=== PATIENT | male | born 2000 | race Caucasian/White ===

== ENCOUNTER 2021-01-03 02:53 | Emergency (ER) | payer OTHER, SELFPAY ==
[2021-01-03 02:54] VITALS: BP 130/77; PULSE 109; RESP 16; TEMP 36.4; O2SAT 100; BMI 22.7
--- NOTE | 2021-01-03 02:58 | CT_ITS ---
STUDY: CT CERVICAL SPINE WITHOUT CONTRAST REASON FOR EXAM: Male, 20 years old. Fall RADIATION DOSAGE (If Supplied By Facility): CTDIvol = ( 23.08 ) mGy, DLP = ( 462.46 ) mGycm TECHNIQUE: High resolution transaxial imaging was performed without contrast material. Sagittal and coronal images were reconstructed. Individualized dose optimization techniques were used for this CT. COMPARISON: None FINDINGS: Normal craniovertebral junction. Normal anterior atlantoaxial articulation. Normal odontoid process. Normal cervical lordosis. Normal vertebral bodies and posterior osseous elements. C2-3: Normal endplates. Normal disc height and morphology. Normal central canal and intervertebral neuroforamina. C3-4: Normal endplates. Normal disc height and morphology. Normal central canal and intervertebral neuroforamina. C4-5: Normal endplates. Normal disc height and morphology. Normal central canal and intervertebral neuroforamina. C5-6: Normal endplates. Normal disc height and morphology. Normal central canal and intervertebral neuroforamina. C6-7: Normal endplates. Normal disc height and morphology. Normal central canal and intervertebral neuroforamina. C7-T1: Normal endplates. Normal disc height and morphology. Normal central canal and intervertebral neuroforamina. Normal visualized soft tissue structures. CT/Spine Cervical without Contras IMPRESSION: Normal unenhanced CT examination of the cervical spine. Electronically Signed: Mohit Murillo MD at 3:48 EDT Tel , Service support ,
--- NOTE | 2021-01-03 02:58 | CT_ITS ---
STUDY: CT BRAIN WITHOUT CONTRAST REASON FOR EXAM: Male, 20 years old. Fall RADIATION DOSAGE (If Supplied By Facility): CTDIvol = ( 44.99 ) mGy, DLP = ( 897.35 ) mGycm TECHNIQUE: Transaxial CT imaging of the brain was performed without administration of intravenous contrast material. Individualized dose optimization techniques were used for this CT. COMPARISON: No relevant priors. FINDINGS: Normal soft tissue structures. Normal calvarium. Normal size ventricles and extra-axial spaces for the patient''s age. Normal white matter tracts of the cerebral hemispheres. Normal basal ganglia and thalami. Normal brainstem. Normal cerebellum. There is no intracranial hemorrhage. There are no findings of an acute ischemic infarction. Normal visualized paranasal sinuses. CT/Brain/Head without Contrast IMPRESSION: No intracranial acute abnormal finding. Electronically Signed: Mohit Murillo MD at 3:45 EDT Tel , Service support ,
[2021-01-03 03:01] VITALS: BP 132/87; PULSE 111
--- NOTE | 2021-01-03 04:00 | EX.ED.DYSGE1 ---
HPI History of Present Illness Chief Complaint: ETOH Intox Narrative Narrative: Patient presenting secondary to an episode of unresponsiveness. Patient was drinking copious amounts of alcohol tonight, mainly vodka. Patient apparently was found unresponsive at the bottom of a flight of stairs. There is no reports whether or not the patient was actually seen or heard falling down the stairs but initially he was unable to be aroused by friends and by EMS. In route to the hospital the patient became more responsive and denies any complaints currently. He denies any coingestants other than alcohol. He denies any self-harm. Denies that he is on any sort of anticoagulants. Review of systems otherwise negative. PFSH PFSH Medical History no medical history Home Medications NK 01/03/21 [History Last Taken Unknown] Allergy/AdvReac Type Severity Reaction Status Date / Time No Known Allergies Allergy Verified 01/03/21 02:59 Social History Smoking Status: Never smoker ROS ROS ED Constitutional Constitutional ED: Denies chills or fever(s) ENT ENT ED: Denies rhinorrhea Cardiovascular Cardiovascular: Denies chest pain Respiratory/Chest Respiratory/Chest: Denies cough or dyspnea Gastrointestinal Gastrointestinal: Denies abdominal pain, diarrhea, nausea or vomiting Genitourinary Genitourinary ED: Denies dysuria or hematuria Musculoskeletal Musculoskeletal: Denies back pain Integumentary Denies rash Neurologic Neurologic: Denies paresthesias or weakness Psychiatric Psychiatric: Reports other Details: Alcohol intoxication Endocrine Endocrinology: Denies fatigue Allergic/Immunologic Allergic/Immunologic ED: Denies urticaria EXAM Physical Exam Const Vital Signs: 01/03/21 02:54 01/03/21 03:01 Temperature 97.6 F L Temperature Source Temporal Pulse Rate 109 H 111 H Respiratory Rate 16 Blood Pressure 130/77 H 132/87 H Blood Pressure Mean 94 102 Pulse Ox 100 Oxygen Delivery Method Room Air Positive well nourished and well developed Constitutional Narrative: Patient is clearly intoxicated, but not in acute distress. Airway patent breath sounds equal and bilateral 2+ radial pulses bilaterally symmetric GCS is 14 out of 15 due to intoxication General Appearance ED: well developed and NAD HEENT Reports moist mucous membranes Negative for trauma or tenderness Eyes EOMs intact bilaterally Neck no lymphadenopathy, supple and no JVD Neck Narrative: No midline tenderness no step-offs Chest Wall inspection of chest normal Resp normal respiratory effort and clear to auscultation bilaterally Cardio regular rhythm, no murmurs and peripheral pulses 2+ throughout Rate: other Other Details: Minimal tachycardia GI normal to inspection, nondistended, normoactive bowel sounds, non-tender and no masses Palpation: soft Back/Spine normal to inspection Extremity normal to inspection General Extremety ED: Negative for tenderness Neuro oriented x3 and no sensory deficits noted Sensorium / Orientation: alert Motor Exam: strength 5/5 throughout Psych mental status grossly normal Skin no rashes or lesions noted MDM MDM MDM Narrative Medical decision making narrative: Patient presented secondary to an episode of unresponsiveness and possible fall downstairs and alcohol intoxication. He has no outward signs of trauma primary survey required no intervention secondary survey also shows no signs of outward injuries. CT of the head and neck were obtained and per radiology are negative. Patient remained stable in the emergency department repeat evaluation of the patient at 0400 shows him to be easily arousable but still intoxicated. I do not believe he requires a further observation. At this time. Patient will be discharged back to the [facility] Radiography Diagnostic Testing: Clinical Impression(s) from Imaging Studies Brain CT 01/03/21 02:58 IMPRESSION: No intracranial acute abnormal finding. Electronically Signed: Mohit Murillo MD at 3:45 EDT Tel , Service support , Cervical Spine CT 01/03/21 02:58 IMPRESSION: Normal unenhanced CT examination of the cervical spine. Electronically Signed: Mohit Murillo MD at 3:48 EDT Tel , Service support , Discharge Plan Triage Chief Complaint: ETOH Intox ED Provider: Martínez Turner Dx/Rx/DC Orders Clinical Impression: Alcohol intoxication Instructions: ED Alcohol Intoxication Prescriptions: No Action NK RF: 0 Activity Restrictions/Additional Instructions: Followup as needed Disposition Disposition: Home, Self Care
[2021-01-03 04:19] VITALS: BP 132/67; PULSE 107; RESP 18; O2SAT 99
== END 2021-01-03 04:20 | disposition home or self-care (01) ==
PROVIDERS: Emergency Provider Emergency Medicine
DX: F10.129 Alcohol abuse with intoxication, unspecified (principal)
CPT/HCPCS: 70450; 72125; 99284